=== PATIENT | female | born 1945 | race Caucasian/White ===

== ENCOUNTER 2018-06-28 20:11 | Emergency (ER) | payer OTHER ==
[~2018-06-28] VITALS: Ht 160 cm; Wt 63.5 kg
[2018-06-28] MEDS ORDERED: METOPROLOL SUCC50 MG (20:21)
[2018-06-28] MEDS ORDERED: AVAPRO300 MG (20:21)
[2018-06-28] MEDS ORDERED: PLAVIX75 MG (20:22)
[2018-06-28] MEDS ORDERED: GLIPIZIDE10 MG (20:22)
[2018-06-28] MEDS ORDERED: NORVASC10 MG (20:22)
== END 2018-06-28 23:25 | disposition home or self-care (01) ==
LOC: ER 20:11
DX: R55 Syncope and collapse (principal)